=== PATIENT | female | born 1995 | race Caucasian/White ===

== ENCOUNTER 2016-07-06 13:44 | Emergency (ER) | payer OTHER ==
[2016-07-06 14:06] VITALS: BP 107/73; PULSE 68; RESP 16; TEMP 98.1; O2SAT 97
[2016-07-06 14:24] LABS: LEUKOCYTE ESTERASE,URINE 1+ (NEGATIVE); NITRITE,URINE NEGATIVE (NEGATIVE)
[2016-07-06 14:26] LABS: COLOR YELLOW
--- NOTE | 2016-07-06 14:46 | UCPHY ---
H & P Time Seen by Provider: 07/06/16 14:12 Patient Type: Established HPI/ROS: CHIEF COMPLAINT: Vaginal pain HPI: The patient is a 21-year-old female with no significant past medical history. She reports experiencing vaginal pain and burning that began overnight. The patient denies any trauma to the area. She complains of burning pain to the external vagina when urinating. No fever. No discharge. No history of STD. REVIEW OF SYSTEMS: Aside from elements discussed in the HPI, a comprehensive 10-point review of systems was reviewed and is negative. PMH: None significant. SOCIAL HISTORY: Sexually active. Denies drug abuse. FAMILY HISTORY: Reviewed, noncontributory PHYSICAL EXAM: General:Patient is alert, in no acute distress. ENT:Eyes are normal to inspection. ENT inspection normal. Neck: Normal inspection. Full range of motion. Respiratory:No respiratory distress. Breath sounds normal bilaterally. Cardiovascular: Regular rate and rhythm. Strong peripheral pulses. Normal cap refill. Abdomen:The abdomen is nontender to palpation. There are no peritoneal signs. There are normal bowel sounds. : The fold between the labia is erythematous bilaterally. There is no vaginal discharge. There are no lesions. Skin: Normal color. No rash. Warm and dry. Extremities: Normal appearance. Full range of motion. Neuro: Oriented x3. Normal motor function. Normal sensory function. Smoking Status: Never smoked Constitutional: Initial Vital Signs Temperature (C) 36.7 C 07/06/16 13:45 Heart Rate 68 07/06/16 13:45 Respiratory Rate 16 07/06/16 13:45 Blood Pressure 107/73 07/06/16 13:45 O2 Sat (%) 97 07/06/16 13:45 O2 Delivery Mode Room Air Allergies/Adverse Reactions: No Known Allergies Allergy (Verified 07/06/16 14:01) Home Medications: Medication Instructions Recorded Bcp 07/06/16 Cephalexin [Keflex] 500 mg PO TID #21 cap 07/06/16 Fluconazole [Diflucan (*)] 150 mg PO ONCE #1 tab 07/06/16 MDM/Departure - MDM ED Course/Re-evaluation: This patient presents with vaginal inflammation and irritation most consistent with edelmira vulvovaginitis. I have low suspicion for chlamydia, herpes, gonorrhea. I see no evidence of Bartholin's abscess. I suspect her abnormal urine is contaminant from local irritation but will prescribe her keflex as a precaution. - Depart Disposition: Home, Routine, Self-Care Condition: Good Prescriptions: Cephalexin [Keflex] 500 mg PO TID #21 cap Fluconazole [Diflucan (*)] 150 mg PO ONCE #1 tab Referrals: Jean Claude Palacios MD [Primary Care Provider] - As per Instructions - PQRS PQRS Measurement: 134: Depression screening and followup, PRIME MD-PHQ2 (12 years and older) Over the last 2 weeks, how often have you been bothered by any of the following problems? 1. Feeling down, depressed, or hopeless? 2. Little interest or pleasure in doing things? Patient answered no to both 1 and 2 130: Documentation of medications. Reviewed all patient medications, doses, route and frequency. 226: Do you smoke? No. 51: 18 years old and older with diagnosis of COPD, spirometry performance. Spirometry not performed; equipment not available. Patient has no history of COPD 52: 18 years old and older with COPD and symptoms of COPD or FEV1<60% predicted prescribed a B Agonist. Spirometry not performed; equipment not available.
[2016-07-06 15:05] LABS: BACTERIA 1+ /hpf (NONE SEEN); MUCUS 1+ /lpf (NONE-1+); WBC,URINE 15-25 /hpf (0-3); YEAST OCCASIONAL /hpf (NONE SEEN)
[2016-07-08 13:31] LABS: CHLAMYDIA AMPLIFICATION GENPRB NEGATIVE (NEGATIVE)
== END 2016-07-06 15:30 | disposition home or self-care (01) ==
LOC: CED 13:44
DX: R10.2 Pelvic and perineal pain (principal)
CPT/HCPCS: 81003-PO; 81015-PO; 87210-PO; 99214-PO; G0463-PO

== ENCOUNTER 2016-08-06 11:36 | Emergency (ER) | payer OTHER ==
[2016-08-06 11:44] VITALS: TEMP 98.1
[2016-08-06 13:02] LABS: COLOR YELLOW; LEUKOCYTE ESTERASE,URINE NEGATIVE (NEGATIVE); NITRITE,URINE NEGATIVE (NEGATIVE)
[2016-08-06] MEDS ORDERED: HYDROCODONE/APAP 5/325 TAB PO ONE (13:15)
[2016-08-06] MEDS ORDERED: ONDANSETRON DISINTEGRATING 4 MG TAB PO ONE (13:15)
--- NOTE | 2016-08-06 14:24 | UCPHY ---
H & P Time Seen by Provider: 08/06/16 12:37 Patient Type: Established HPI/ROS: Chief complaint. Vaginal pain HPI. 21-year-old female with 3-4 day history of vaginal pain. Similar symptoms 1 month ago. No significant discharge. 1 month ago she was treated for candidiasis in urinary tract infection. She has also some pain with urination at this time. No fever. ROS Constitutional. no fever/chills, no weakness Eyes. no problems with vision ENT. no sore throat, no nasal drainage Cardiovascular. no chest pain Respiratory. no shortness of breath, no cough Abdominal. Vaginal pain . Dysuria MS. no calf pain/swelling, no neck/back pain, no joint pain Skin. no rash Lymph. no swollen glands Neuro. no headache, no dizziness, no difficulty walking or with speech Past Medical/Surgical History: Healthy Social History: Single, nonsmoker, no alcohol Smoking Status: Never smoked Physical Exam: General Appearance: Alert well-developed female mild distress vital signs are stable Eyes:[ Pupils equal and round no pallor or injection]. ENT,[ Mouth: Mucous membranes are moist.] Respiratory: [There are no retractions, lungs are clear to auscultation.] Cardiovascular:[ Regular rate and rhythm.] Gastrointestinal: [ Abdomen is soft and nontender, no masses, bowel sounds normal.] Neurological: [Awake and alert, sensory and motor exams grossly normal.] Skin:[ Warm and dry, no rashes.] Musculoskeletal: [Neck is supple nontender.] Extremities [ symmetrical, full range of motion.] Psychiatric:[ Patient is oriented X 3, there is no agitation.] Pelvic exam shows some erythema to the vaginal wall and cervix. No active bleeding. She is creamy discharge. Cultures are taken Constitutional: Initial Vital Signs Temperature (C) 36.7 C 08/06/16 11:39 Heart Rate 80 08/06/16 11:39 Respiratory Rate 16 08/06/16 11:39 Blood Pressure 115/82 H 08/06/16 11:39 O2 Sat (%) 99 08/06/16 11:39 O2 Delivery Mode Room Air Allergies/Adverse Reactions: No Known Allergies Allergy (Verified 08/06/16 11:44) Home Medications: Medication Instructions Recorded Bcp 07/06/16 Cephalexin [Keflex] 500 mg PO TID #21 cap 07/06/16 Fluconazole [Diflucan (*)] 150 mg PO ONCE #1 tab 07/06/16 Fluconazole [Diflucan] 200 mg PO ONCE #2 tablet 08/06/16 Hydrocodone/APAP 5/325 [[place] 1 each PO Q4-6PRN PRN #14 tab 08/06/16 5/325 (*)] Medical Decision Making Procedures: Pelvic exam ED Course/Re-evaluation: Swabs taken during pelvic exam show no clue cells, there is no trich. Positive yeast On re-evaluation patient and I discussed laboratory findings, treatment plan, criteria for return importance of follow-up and further evaluation. She expresses understanding and agreement Differential Diagnosis: I considered sexually transmitted disease, trichomonads, candidiasis, vaginitis - Data Points Laboratory Results: 08/06/16 08/06/16 08/06/16 13:21 13:21 13:00 Urine Color YELLOW Urine Appearance CLEAR Urine pH 6.0 (5.0-7.5) Ur Specific [place] 1.015 (1.002-1.030) Urine Protein NEGATIVE (NEGATIVE) Urine Ketones NEGATIVE (NEGATIVE) Urine Blood NEGATIVE (NEGATIVE) Urine Nitrate NEGATIVE (NEGATIVE) Urine Bilirubin NEGATIVE (NEGATIVE) Urine Urobilinogen 0.2 EU EU (0.2-1.0) Ur Leukocyte Esterase NEGATIVE (NEGATIVE) Ur Culture Indicated? NOT INDICATED (NI) Urine Glucose NEGATIVE (NEGATIVE) Trichomonas (Wet Prep) RARE YEAST H Elisha species DNA Pending C.trachomatis RNA (TMA) Pending Gardnerella DNA Probe Pending N.gonorrhoeae RNA (TMA) Pending Trichomonas DNA Probe Pending Medications Given: Discontinued Medications Hydrocodone Bitart/Acetaminophen ([place] 5/325) 1 tab PO EDNOW ONE Stop: 08/06/16 13:16 Last Admin: 08/06/16 13:20 Dose: 1 tab Ondansetron HCl (Zofran Odt) 4 mg PO EDNOW ONE Stop: 08/06/16 13:16 Last Admin: 08/06/16 13:20 Dose: 4 mg Departure - Departure Disposition: Home, Routine, Self-Care Clinical Impression: Elisha vaginitis Condition: Good Instructions: Vaginitis (ED) Additional Instructions: Diflucan for treatment of yeast infection. Ibuprofen and hydrocodone for pain. Return for worsening pain, fever, vomiting. Re-evaluation in 2-3 days if not improved Referrals: Jean Claude Palacios MD [Primary Care Provider] - As per Instructions Karol Mccormack DO [Doctor of Osteopathy] - 2-3 days, call for appt. Stand Alone Forms: Work Excuse Prescriptions: Fluconazole [Diflucan] 200 mg PO ONCE #2 tablet Hydrocodone/APAP 5/325 [[place] 5/325 (*)] 1 each PO Q4-6PRN PRN #14 tab PRN Reason: Pain, Moderate - PQRS PQRS Measurement: 134: Depression screening and followup, PRIME MD-PHQ2 (12 years and older) Over the last 2 weeks, how often have you been bothered by any of the following problems? 1. Feeling down, depressed, or hopeless? 2. Little interest or pleasure in doing things? Patient answered no to both 1 and 2 130: Documentation of medications. Reviewed all patient medications, doses, route and frequency. 226: Do you smoke? No.
[2016-08-06 14:38] VITALS: BP 100/60; PULSE 65; RESP 12; O2SAT 95
[2016-08-07 12:21] LABS: CHLAMYDIA AMPLIFICATION GENPRB NEGATIVE (NEGATIVE)
== END 2016-08-06 14:28 | disposition home or self-care (01) ==
LOC: CED 11:36
DX: B37.3 Candidiasis of vulva and vagina (principal)
CPT/HCPCS: 81003-PO; 87210-PO; 99214-PO; G0463-PO

== ENCOUNTER 2016-10-17 18:06 | Emergency (ER) | payer OTHER ==
[2016-10-17 18:42] VITALS: BP 111/67; RESP 16
--- NOTE | 2016-10-17 18:53 | EDPHY ---
H & P Stated Complaint: vaginal irritation ;repeated episodes. Time Seen by Provider: 10/17/16 18:46 HPI/ROS: CHIEF COMPLAINT: Vaginal discomfort HISTORY OF PRESENT ILLNESS: Patient is a 21-year-old sexually active female who comes to the emergency department complaining of vaginal discharge and vaginal pain. She states that this is her 4th episode in the last year. She states that she has been twice diagnosed with yeast infection but that most recently her primary diagnosed her with bacterial vaginosis and states that the treatment for yeast infections were masking her symptoms. She was told to always wear underwear and wash daily and she has been doing this. She has not had a fever. She has pain with urination and hesitancy. No fever. No abdominal pain. She denies risk of . She is on control pills. No bleeding. REVIEW OF SYSTEMS: Constitutional: denies: chills, fever, recent illness, recent injury EENTM: denies: blurred vision, double vision, nose congestion Respiratory: denies: cough, shortness of breath Cardiac: denies: chest pain, irregular heart rate, lightheadedness, palpitations Gastrointestinal/Abdominal: denies: abdominal pain, diarrhea, nausea, vomiting, blood streaked stools Genitourinary: denies: dysuria, frequency, hematuria, pain Musculoskeletal: denies: joint pain, muscle pain Skin: denies: lesions, rash, jaundice, bruising Neurological: denies: headache, numbness, paresthesia, tingling, dizziness, weakness Hematologic/Lymphatic: denies: blood clots, easy bleeding, easy bruising Immunologic/allergic: denies: HIV/AIDS, transplant EXAM: GENERAL: Well-appearing, well-nourished and in no acute distress. HEAD: Atraumatic, normocephalic. EYES: Pupils equal round and reactive to light, extraocular movements intact, sclera anicteric, conjunctiva are normal. ENT: TMs normal, nares patent, oropharynx clear without exudates. Moist mucous membranes. NECK: Normal range of motion, supple without lymphadenopathy or JVD. LUNGS: Breath sounds clear to auscultation bilaterally and equal. No wheezes rales or rhonchi. HEART: Regular rate and rhythm without murmurs, rubs or gallops. ABDOMEN: Soft, nontender, normoactive bowel sounds. No guarding, no rebound. No masses appreciated. : Normal external exam, white runny discharge from cervix. No cervical motion tenderness. BACK: No CVA tenderness, no spinal tenderness, step-offs or deformities EXTREMITIES: Normal range of motion, no pitting or edema. No clubbing or cyanosis. NEUROLOGICAL: Cranial nerves II through XII grossly intact. Normal speech, normal gait. 5/5 strength, normal movement in all extremities, normal sensation PSYCH: Normal mood, normal affect. SKIN: Warm, dry, normal turgor, no visible rashes or lesions. Source: Patient Exam Limitations: No limitations - Personal History LMP (Females 10-55): 15-21 Days Ago Current Tetanus Diphtheria and Acellular Pertussis (TDAP): Yes - Medical/Surgical History Hx Asthma: No Hx Chronic Respiratory Disease: No Hx Diabetes: No Hx Cardiac Disease: No Hx Renal Disease: No Hx Cirrhosis: No Hx Alcoholism: No Hx HIV/AIDS: No Hx Splenectomy or Spleen Trauma: No Other PMH: Denies. PCP Hillary Palacios. Urethra repair. - Family History Significant Family History: No pertinent family hx - Social History Smoking Status: Never smoked Alcohol Use: Sober Drug Use: None Constitutional: Initial Vital Signs Temperature (C) 36.9 C 10/17/16 18:15 Heart Rate 86 10/17/16 18:15 Respiratory Rate 16 10/17/16 18:15 Blood Pressure 111/67 10/17/16 18:15 O2 Sat (%) 95 10/17/16 18:15 O2 Delivery Mode Room Air Allergies/Adverse Reactions: No Known Allergies Allergy (Verified 10/17/16 18:41) Home Medications: Medication Instructions Recorded Bcp 07/06/16 Probiotic 10/17/16 traMADol [Ultram 50 mg (*)] 50 mg PO Q4 PRN #10 tab 10/17/16 Medical Decision Making ED Course/Re-evaluation: 8:05 p.m. we discussed the test results thus far. I offered the patient antibiotics to cover for GC and Chlamydia which she declines. She would prefer to wait for the test results. She has no clue cells or yeast on wet prep. The BV PCR is pending. I will have her follow up with Ob. She is requesting something for pain but states the Vicodin is too strong and ibuprofen is too weak. Will try tramadol for a short prescription. Differential Diagnosis: Partial list of the Differential diagnosis considered include but were not limited to; yeast infection, bacterial vaginosis, GC, chlamydia, and although unlikely based on the history and physical exam, I also considered , laceration, abscess. I discussed these differential diagnoses and the plan with the patient as well as the usual and expected course. The patient understands that the diagnosis is provisional and that in medicine we are not always correct and that further workup is often warranted. Usual and customary warnings were given. All of the patient's questions were answered. The patient was instructed to return to the emergency department should the symptoms at all worsen or return, otherwise to followup with the physician as we discussed. - Data Points Laboratory Results: 10/17/16 10/17/16 10/17/16 19:08 19:08 19:08 Urine Color YELLOW Urine Appearance CLEAR Urine pH 6.5 (5.0-7.5) Ur Specific [place] 1.010 (1.002-1.030) Urine Protein NEGATIVE (NEGATIVE) Urine Ketones NEGATIVE (NEGATIVE) Urine Blood NEGATIVE (NEGATIVE) Urine Nitrate NEGATIVE (NEGATIVE) Urine Bilirubin NEGATIVE (NEGATIVE) Urine Urobilinogen 0.2 EU EU (0.2-1.0) Ur Leukocyte Esterase NEGATIVE (NEGATIVE) Urine RBC NONE SEEN /hpf /hpf (0-3) Urine WBC 1-3 /hpf /hpf (0-3) Ur Epithelial Cells TRACE /lpf /lpf (NONE-1+) Urine Glucose NEGATIVE (NEGATIVE) Urine Test Trichomonas (Wet Prep) NO YEAST Elisha species DNA Pending C.trachomatis RNA (TMA) Pending Gardnerella DNA Probe Pending N.gonorrhoeae RNA (TMA) Pending Trichomonas DNA Probe Pending 10/17/16 19:08 Urine Color Urine Appearance Urine pH Ur Specific [place] Urine Protein Urine Ketones Urine Blood Urine Nitrate Urine Bilirubin Urine Urobilinogen Ur Leukocyte Esterase Urine RBC Urine WBC Ur Epithelial Cells Urine Glucose Urine Test NEGATIVE Trichomonas (Wet Prep) Elisha species DNA C.trachomatis RNA (TMA) Gardnerella DNA Probe N.gonorrhoeae RNA (TMA) Trichomonas DNA Probe Departure - Departure Disposition: Home, Routine, Self-Care Clinical Impression: Vaginal discharge Condition: Fair Instructions: Vaginal Discharge (ED) Referrals: Jean Claude Palacios MD [Primary Care Provider] - As per Instructions Abbe-Babs Moreno MD [Medical Doctor] - As per Instructions Prescriptions: traMADol [Ultram 50 mg (*)] 50 mg PO Q4 PRN #10 tab PRN Reason: Pain, Severe
[2016-10-17 19:29] LABS: COLOR YELLOW; LEUKOCYTE ESTERASE,URINE NEGATIVE (NEGATIVE); NITRITE,URINE NEGATIVE (NEGATIVE); PH,URINE 6.5 (5.0-7.5)
[2016-10-17 19:50] LABS: RBC,URINE NONE SEEN /hpf (0-3)
[2016-10-17 20:12] VITALS: PULSE 82; TEMP 98.1; O2SAT 94
[2016-10-21 14:54] LABS: CHLAMYDIA AMPLIFICATION GENPRB NEGATIVE (NEGATIVE)
== END 2016-10-17 20:11 | disposition home or self-care (01) ==
LOC: CED 18:06
DX: N89.8 Other specified noninflammatory disorders of vagina (principal)
CPT/HCPCS: 81003-PO; 81015-PO; 81025-PO